=== PATIENT | female | born 1960 | race African-American/Black ===

== ENCOUNTER 2018-09-14 12:57 | Outpatient (CLI) | payer BC ==
--- NOTE | 2018-09-14 15:48 | ULT ---
LIMITED RIGHT BREAST ULTRASOUND: Date: 09-14-18 Provided Clinical History: Right breast palpable abnormality. FINDINGS: Limited sonographic interrogation was performed of the right breast in the region of palpable concern . The sonographic appearance of the breast parenchyma in this region is normal. IMPRESSION: BIRADS category 1 - negative. Negative imaging findings should not preclude further evaluation of a c linically suspicious area. Patient was referred back to her clinician. POS: OFF
--- NOTE | 2018-09-14 15:49 | ULT ---
LIMITED LEFT BREAST ULTRASOUND: Date: 09-14-18 Provided Clinical History: Left breast palpable abnormality. FINDINGS: Limited sonographic interrogation was performed of the left breast in the region of palpable concern. The sonographic appearance of the breast tissue in this region is normal. IMPRESSION: BIRADS category 1 - negative. Negative imaging findings should not preclude further evaluation of a c linically suspicious area. Patient was referred back to her clinician. POS: OFF
== END 2018-09-14 12:58 | disposition home or self-care (01) ==
LOC: BICMAMMO 12:57
PROVIDERS: ATTEND Student in an Organized Health Care Education/Training Program
DX: N63.10 Unspecified lump in the right breast, unspecified quadrant (principal); N63.20 Unspecified lump in the left breast, unspecified quadrant; Z80.3 Family history of malignant neoplasm of breast
CPT/HCPCS: 77066; G0279

== ENCOUNTER 2019-07-22 14:03 | Outpatient (CLI) | payer BC ==
--- NOTE | 2019-07-22 15:19 | BD ---
BONE DENSITOMETRY USING DEXA: Date: 07/22/19 HISTORY: Postmenopausal screening for osteoporosis. FINDINGS: Lumbar Spine: BMD (g/cm2) L1 1.074 T-Score: 0.8 Z-Score: 1.8 L2 1.157 T-Score: 1.2 Z-Score: 2.4 L3 1.220 T-Score: 1.2 Z-Score: 2.5 L4 1.190 T-Score: 1.2 Z-Score: 2.5 L1-L4 1.165 T-Score: 1.1 Z-Score: 2.3 Femoral Neck: 0.853 T-Score: 0.9 Z-Score: 1.2 Total Femur: 1.118 T-Score: 1.4 Z-Score: 2.2 IMPRESSION: Normal bone mineral density. No evidence of osteopenia/osteoporosis. POS: TPC
== END 2019-07-22 14:04 | disposition home or self-care (01) ==
LOC: BICMAMMO 14:03
PROVIDERS: ATTEND Family Medicine
DX: Z13.820 Encounter for screening for osteoporosis (principal)
CPT/HCPCS: 77080

== ENCOUNTER 2020-06-22 12:53 | Outpatient (CLI) | payer BC ==
--- NOTE | 2020-06-22 13:41 | MMO ---
Bilateral MAMMO Bilat Screen [facility]. CLINICAL HISTORY: Patient is 60 years old and is seen for screening. The patient has the following family history of breast cancer: mother, malignant (generic). The patient has no personal history of cancer. VIEWS: The views performed were: bilateral craniocaudal with tomosynthesis and bilateral mediolateral oblique with tomosynthesis. FILMS COMPARED: The present examination has been compared to prior imaging studies performed at 06/16/2014, 06/30/2016 and 09/14/2018. This study has been interpreted with the assistance of computer-aided detection. MAMMOGRAM FINDINGS: There are scattered fibroglandular densities. There are stable benign appearing calcifications seen in both breasts. There are no suspicious masses, suspicious calcifications, or new areas of architectural distortion. IMPRESSION: THERE IS NO MAMMOGRAPHIC EVIDENCE OF MALIGNANCY. A ROUTINE FOLLOW-UP MAMMOGRAM IN 1 YEAR IS RECOMMENDED. THE RESULTS OF THIS EXAM WERE SENT TO THE PATIENT. ACR BI-RADS Category 2 - Benign finding MAMMOGRAPHY NOTE: 1. A negative mammogram report should not delay a biopsy if a dominant of clinically suspicious mass is present. 2. Approximately 10% to 15% of breast cancers are not detected by mammography. 3. Adenosis and dense breasts may obscure an underlying neoplasm. Reported by: IMANI PAT MD Electonically Signed: [id number]
== END 2020-06-22 12:54 | disposition home or self-care (01) ==
LOC: BICMAMMO 12:53
PROVIDERS: ATTEND Family Medicine
DX: Z12.31 Encounter for screening mammogram for malignant neoplasm of breast (principal); Z80.3 Family history of malignant neoplasm of breast
CPT/HCPCS: 77063; 77067

== ENCOUNTER 2021-08-05 12:25 | Outpatient (CLI) | payer BC | END 2021-08-05 12:26 | disposition home or self-care (01) | LOC: BICMAMMO 12:25 | PROVIDERS: ATTEND Family Medicine | DX: Z12.31 Encounter for screening mammogram for malignant neoplasm of breast (principal); Z80.3 Family history of malignant neoplasm of breast | CPT/HCPCS: 77063; 77067 ==

== ENCOUNTER 2023-12-10 14:35 | Outpatient (CLI) | payer BC | END 2023-12-10 14:36 | disposition home or self-care (01) | LOC: BICMAMMO 14:35 | PROVIDERS: ATTEND Family Medicine | DX: Z12.31 Encounter for screening mammogram for malignant neoplasm of breast (principal); Z80.3 Family history of malignant neoplasm of breast | CPT/HCPCS: 77063; 77067 ==